=== PATIENT | male | born 1955 | race Caucasian/White ===

== ENCOUNTER 2019-01-05 14:41 | Emergency (ER) | payer OTHER ==
[2019-01-05 14:47] VITALS: BP 135/87
--- NOTE | 2019-01-05 14:54 | ED Physician Documentation ---
History of Present Illness - Stated complaint Stated Complaint: RT SHOULDER INJ - Chief complaint Chief Complaint: Trauma Ext - History obtained from History obtained from: Patient - History of Present Illness Timing: Prior to arrival - Additonal information Additional information: Patient is a previously healthy, right-handed 63-year-old male presenting with r ight shoulder pain after playing basketball just prior to arrival. Patient reports that he had his arm raised up above his head which got accidentally pulled backwards. Patient then felt popping and pain. Patient notes that 2 doctors were present at the game and did not feel that he had dislocated his shoulder. Patient reports pain is improved, but has decrease in range of motion. Patient denies any sensation changes to arm, as well as any overlying skin changes including bruising, abrasions, lacerations. No other injuries noted. No other improving or worsening factors. Review of Systems Musculoskeletal: reports: Extremity pain Neurologic: reports: Focal weakness PD PAST MEDICAL HISTORY - Past Medical History Past Medical History: No - Past Surgical History Past Surgical History: No - Allergies Allergies/Adverse Reactions: Allergies Allergy/AdvReac Type Severity Reaction Status Date / Time No Known Drug Allergies Allergy Verified 01/05/19 14:47 PD ED PE NORMAL - Vitals Vital signs reviewed: Yes - General General: Alert and oriented X 3, No acute distress, Well developed/nourished - HEENT HEENT: Atraumatic - Cardiac Cardiac: Strong equal pulses (Cap refill brisk) - Respiratory Respiratory: No respiratory distress - Derm Derm: Normal color, Warm and dry, No rash - Extremities Extremities: No deformity, No tenderness to palpate. No: Normal ROM s pain (Right upper extremity without deformity, tenderness to palpation or loss of sensation or steam clothes press operator strength, but with reduced range of motion and abduction at shoulder only.) - Neuro Neuro: Alert and oriented X 3, No motor deficit, No sensory deficit - Psych Psych: Normal mood, Normal affect Results - Vitals Vitals: Vital Signs - 24 hr 01/05/19 14:45 Temperature 37.0 C Heart Rate 83 Respiratory 18 Rate Blood Pressure 135/87 H O2 Saturation 97 Oxygen O2 Source Room air PD MEDICAL DECISION MAKING - ED course Complexity details: reviewed results, re-evaluated patient, considered differential, d/w patient ED course: Patient presenting with likely rotator cuff injury based on mechanism and physical exam findings, particularly restriction in range of motion. Obtained plain films to further evaluate for bony abnormalities including AC separation, dislocation, fracture, but none found. No external trauma such as abrasions, lacerations. No other infectious signs given traumatic mechanism, have low suspicion for such. Feel that patient can safely discharge home with orthopedic follow-up, sling, supportive cares, and return precautions. Patient advised of results and recommendations and is comfortable with discharge plan. Departure - Departure Disposition: 01 Home, Self Care Clinical Impression: Rotator cuff injury Qualifiers: Encounter type: initial encounter Laterality: right Qualified Code(s): S46.001A - Unspecified injury of muscle(s) and tendon(s) of the rotator cuff of right shoulder, initial encounter Condition: Good Instructions: ED Torn Rotator Cuff Follow-Up: Que Saxena MD [Provider Admit Priv/Credential] - Within 3 Days Comments: Please use sling as instructed to help relieve discomfort. May also use anti- inflammatory such as Tylenol or Advil. Please restrict activities until follow- up with orthopedic surgeon. Recommend contacting orthopedic surgeon on Monday to establish follow-up appointment in the next week or so. Return to ED sooner if experience new injury, worsening symptoms, or other concerns.
--- NOTE | 2019-01-05 15:32 | XRAY Report ---
Reason: unable to lift, pulled when playing basketball Procedure Date: 01/05/2019 Accession Number: [id number] / [id number] Procedure: XR - Shoulder 3 View RT CPT Code: FULL RESULT: EXAM: RIGHT SHOULDER RADIOGRAPHY EXAM DATE: 01/05/2019 02:58 PM. CLINICAL HISTORY: Unable to lift, pulled when playing basketball. COMPARISON: None. TECHNIQUE: 3 views. FINDINGS: Bones: Normal. No fracture or bone lesion. Joints: Degenerative changes are seen in the right glenohumeral and acromial clavicular joints are suggested by loss of joint space and marginal osteophytes. Soft tissues: The visualized hemithorax is unremarkable. No soft tissue swelling. IMPRESSION: No acute displaced fracture or malalignment. Degenerative changes of right acromioclavicular and glenohumeral joints. [facility]
== END 2019-01-05 15:48 | disposition home or self-care (01) ==
LOC: ED 14:41
DX: S46.001A Unspecified injury of muscle(s) and tendon(s) of the rotator cuff of right shoulder, initial encounter (principal); X50.1XXA Overexertion from prolonged static or awkward postures, initial encounter; Y93.67 Activity, basketball; Y92.310 Basketball court as the place of occurrence of the external cause; M19.011 Primary osteoarthritis, right shoulder
CPT/HCPCS: 99282; 99283